=== PATIENT | male | born 2000 | race African-American/Black ===

== ENCOUNTER 2024-09-17 13:03 | Emergency (ER) | payer SELFPAY ==
[~2024-09-17] VITALS: Ht 188 cm; Wt 78.0 kg
[2024-09-17 13:06] VITALS: O2SAT 98
[2024-09-17] MEDS: KETOROLAC 30MG/ML VIAL IV STA (13:47)
[2024-09-17] MEDS: SODIUM CHLORIDE 0.9% 1,000 ML IV ONE ×2 (13:48→15:16)
[2024-09-17] MEDS: ONDANSETRON HCL 4MG/2ML INJ IV STA (13:48)
[2024-09-17 13:51] LABS: CHLORIDE 107 mEq/L (98-107); POTASSIUM 5.7 mEq/L (3.5-5.1); SODIUM 138 mEq/L (136-145)
[2024-09-17 13:52] LABS: CARBON DIOXIDE 21 mEq/L (21-32)
[2024-09-17 13:53] LABS: CALCIUM 9.9 mg/dL (8.7-10.4)
[2024-09-17 13:57] LABS: CREATININE 1.1 mg/dL (0.6-1.3); GLUCOSE 112 mg/dL (70-105)
[2024-09-17 13:58] LABS: UREA NITROGEN BLOOD 6 mg/dL (9-23)
[2024-09-17 14:00] LABS: BASOPHILS % 0.5 % (0.0-2.0); EOSINOPHILS % 0.2 % (0.0-5.0); HEMATOCRIT. 55.3 % (42.0-52.0); HEMOGLOBIN. 18.2 g/dL (14.0-18.0); LYMPHOCYTES % 20.8 % (20.0-50.0); MEAN CORPUSCULAR HEMOGLOBIN 30.8 pg (28.0-32.0); MEAN CORPUSCULAR VOLUME 93.3 fL (80.0-94.0); MEAN PLATELET VOLUME 9.3 fl (7.4-10.4); MONOCYTES % 5.5 % (2.0-8.0); PLATELET 346 x1000/uL (130-400); RED BLOOD CELL COUNT 5.93 mill/uL (4.7-6.1); RED CELL DISTRIBUTION WIDTH 14.4 % (11.6-14.6); WHITE BLOOD COUNT 7.8 x1000/uL (4.5-11.0)
[2024-09-17] MEDS: METOCLOPRAMIDE HCL 10MG/2ML VIAL IV STA (14:13)
[2024-09-17] MEDS ORDERED: ONDA-239 PO (15:07)
[2024-09-17 15:24] VITALS: BP 127/77; PULSE 67; RESP 18; TEMP 36.9; O2SAT 98
[2024-09-18] MEDS ORDERED: ALPR2TAB2 PO (15:54)
== END 2024-09-17 15:26 | disposition home or self-care (01) ==
LOC: EDBD → ER 13:03
DX: R11.2 Nausea with vomiting, unspecified (principal); R19.7 Diarrhea, unspecified; E87.5 Hyperkalemia; F41.9 Anxiety disorder, unspecified
CPT/HCPCS: 80048; 83690; 85025; 36415; 96361; 96374; 96375; 99284; J1885; J2765; J2405; J7030; Z7610 ×4

== ENCOUNTER 2024-10-03 00:14 | Emergency (ER) | payer OTHER ==
[~2024-10-03] VITALS: Ht 188 cm; Wt 95.0 kg
[~2024-10-03 00:14] MED LIST: ALPR2TAB2 PO; ONDA-239 PO
[2024-10-03 00:34] VITALS: O2SAT 99
[2024-10-03] MEDS: KETOROLAC 15MG/ML VIAL IM ONE (01:20)
[2024-10-03] MEDS ORDERED: HYDR-4001 MT (02:08)
[2024-10-03 02:24] VITALS: BP 111/61; PULSE 68; RESP 18; TEMP 37.4; O2SAT 98
== END 2024-10-03 02:32 | disposition home or self-care (01) ==
LOC: ER 00:14
DX: S02.69XA Fracture of mandible of other specified site, initial encounter for closed fracture (principal); F12.90 Cannabis use, unspecified, uncomplicated; Z79.899 Other long term (current) drug therapy; X58.XXXA Exposure to other specified factors, initial encounter; Y93.89 Activity, other specified; Y92.89 Other specified places as the place of occurrence of the external cause; Y99.8 Other external cause status
CPT/HCPCS: 99285; 70486; 96372; J1885; 99283